=== PATIENT | male | born 1960 | race Two or more races ===

== ENCOUNTER → 2017-04-03 | Outpatient (CLI) | payer BC ==
--- NOTE | 2017-04-03 08:02 | MR ---
EXAMINATION TYPE: MR shoulder RT wo con DATE OF EXAM: 04/03/2017 7:47 AM COMPARISON: NONE HISTORY: Pain Right shoulder with limited ROM x2 years TECHNIQUE: Multiplanar, multisequence imaging of the right shoulder is performed without contrast. FINDINGS: There is no evidence of an os acromiale. There are minimal inflammatory changes and mild hy pertrophic changes in the right AC joint. There is mild tendinosis of the supraspinatus tendon. There is no evidence of rotator cuff tear. Cartilaginous glenoid labrum appears intact. The biceps tendon is normally situated within the biceps tendon groove and inserts normally upon the biceps anchor. There is a small amount of fluid in the rotator interval. IMPRESSION: MILD TENDINOSIS OF THE SPINOUS TENDON. 2. NO EVIDENCE OF A ROTATOR CUFF TEAR. 3. MINIMAL INFLAMMATORY CHANGE IN THE RIGHT AC JOINT.
== END | disposition home or self-care (01) ==
LOC: RADMRIMAIN 07:06
PROVIDERS: ATTEND Orthopaedic Surgery
DX: M19.011 Primary osteoarthritis, right shoulder (principal); M67.813 Other specified disorders of tendon, right shoulder

== ENCOUNTER 2017-07-13 13:29 | Emergency (ER) | payer BC ==
[2017-07-13 13:38] VITALS: RESP 18; TEMP 99.2
[2017-07-13] MEDS ORDERED: ONDANSETRON ODT 4 MG TAB PO STA (13:59)
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
--- NOTE | 2017-07-13 14:25 | CT ---
EXAMINATION TYPE: CT brain wo con DATE OF EXAM: 07/13/2017 HISTORY: Fell, hit head CT DLP: 1107.4 mGycm. Automated Exposure Control for Dose Reduction was Utilized. TECHNIQUE: CT scan of the head is performed without contrast. COMPARISON: None. FINDINGS: There is no acute intracranial hemorrhage or midline shift identified. There is diffuse v entricular and sulcal prominence consistent with diffuse age-related cerebral atrophy. There is low- attenuation in the periventricular white matter consistent with chronic small vessel ischemic change. The globes are intact and the visualized sinuses are clear. The calvarium is intact. IMPRESSION: No acute intracranial hemorrhage or midline shift. There is mild to minimal diffuse age -related cerebral atrophy and chronic small vessel ischemic change noted.
[2017-07-13 15:01] VITALS: PULSE 133
[2017-07-13 15:11] VITALS: BP 158/97
== END 2017-07-13 15:11 | disposition home or self-care (01) ==
LOC: EC 13:29
DX: S00.93XA Contusion of unspecified part of head, initial encounter (principal); M79.89 Other specified soft tissue disorders; I10 Essential (primary) hypertension; Z79.899 Other long term (current) drug therapy; W03.XXXA Other fall on same level due to collision with another person, initial encounter
CPT/HCPCS: 70450; 99283

== ENCOUNTER → 2017-10-15 | Day surgery (SDC) | payer BC ==
[2017-10-07 09:23] VITALS: BMI 35.2
[~2017-10-15] MED LIST: BUPIVACAINE-EPI 0.5%-1:200,000 10 ML VIAL SQ ONE; DEXAMETHASONE SOD PHOSPHATE 10 MG/ML 1 ML VIAL IV ONE; GLYCOPYRROLATE 0.2 MG/ML 2 ML VIAL ONE; HEPARIN SODIUM,PORCINE 5,000 UNIT/ML 1 ML VIAL SQ ONE; HYDROcodone/APAP 7.5-325MG 1 EACH TAB PO ONE; HYDROmorphone 0.5 MG/0.5 ML SYRINGE IVP PRN; KETAMINE 10 MG/ML 20 ML VIAL ONE; LACTATED RINGERS 1,000 ML IV SCH; LIDOCAINE 1% 20 ML VIAL (10MG/ML) FOR IV START INTRADERMA ONE; MIDAZOLAM 2 MG/2 ML VIAL ONE; NA PHOS,M-B/NA PHOS,DI-BA 133 ML ENEMA RECTAL ONE; ONDANSETRON 4 MG/2 ML VIAL IVP ONE; PROPOFOL 10 MG/ML 20 ML VIAL IV ONE; Pre Op ABX Message 1 EACH MISC MISCELLANE ONE; ceFAZolin 1,000 MG in DEXTROSE/WATER 1 50ML.BAG IVPB STA; fentaNYL (PF) 50 MCG/ML 2 ML AMP ONE
[2017-10-15 07:07] VITALS: TEMP 97.9
--- NOTE | 2017-10-15 08:00 | P.GSHP ---
History of Present Illness H&P Date: 10/15/17 Chief Complaint: Hemorrhoids This a 57-year-old male referred from Dr. Isiah Kumar. Patient rents today for hemorrhoidectomy. He's had issues with rectal bleeding, burning and itching. He underwent recent colonoscopy is found have evidence of internal and external hemorrhoids. Past Medical History Past Medical History: Asthma, GERD/Reflux, Hypertension Additional Past Medical History / Comment(s): STATES LOW HGB. History of Any Multi-Drug Resistant Organisms: None Reported Past Surgical History: Orthopedic Surgery Additional Past Surgical History / Comment(s): right wrist surgery-with hardware., COLONOSCOPY, EGD Past Anesthesia/Blood Transfusion Reactions: No Reported Reaction Past Psychological History: No Psychological Hx Reported Smoking Status: Never smoker Past Alcohol Use History: Rare Past Drug Use History: None Reported - Past Family History Mother Family Medical History: Cancer Additional Family Medical History / Comment(s): lung cancer Father Family Medical History: Cancer Additional Family Medical History / Comment(s): lung cancer Medications and Allergies Home Medications Medication Instructions Recorded Confirmed Type Albuterol Sulfate [Proventil Hfa] 1 - 2 puff INHALATION Q6HR PRN 09/20/17 History Ibuprofen 800 mg PO HS PRN 09/20/17 10/07/17 History Losartan/Hydrochlorothiazide 1 each PO DAILY 09/20/17 10/07/17 History [Hyzaar 50-12.5 Tablet] Multivit-Min/FA/Lycopen/Lutein 1 each PO DAILY 09/20/17 10/07/17 History [Centrum Silver Men Tablet] Omeprazole [PriLOSEC] 40 mg PO DAILY 09/20/17 10/07/17 History Allergies Allergy/AdvReac Type Severity Reaction Status Date / Time No Known Allergies Allergy Verified 09/20/17 11:17 Surgical - Exam Vital Signs Temp Pulse Resp BP Pulse Ox 97.9 F 84 18 125/73 97 10/15/17 07:05 10/15/17 07:05 10/15/17 07:05 10/15/17 07:05 10/15/17 07:05 - General well developed, no distress - Eyes PERRL - ENT normal pinna - Neck no masses - Respiratory normal expansion - Cardiovascular Rhythm: regular - Abdomen Abdomen: soft, non tender Assessment and Plan Assessment: Hemorrhoids. We'll perform internal and external hemorrhoidectomy.
--- NOTE | 2017-10-15 08:59 | P.OP ---
Date of Procedure: 10/15/17 Preoperative Diagnosis: Internal and external hemorrhoids Postoperative Diagnosis: Internal and external hemorrhoids Procedure(s) Performed: Normal and external hemorrhoidectomy Anesthesia: MAC Surgeon: Lonnie Franklin Estimated Blood Loss (ml): 5 Pathology: other (External hemorrhoids) Condition: stable Disposition: PACU Description of Procedure: She was placed on the endoscopy table in the on jackknife position. Patient received IV sedation and local anesthetic. Digital rectal exam was performed which revealed internal and external hemorrhoids. the bivalve anal retractors placed in the anus in the internal and external hemorrhoids were visualized. The left lateral hemorrhoid column was grasped with a pair of Allis clamps and then the hemorrhoidectomy was performed using the Harmonic scissors. Next the right anterior and the right posterior hemorrhoid column were excised in identical fashion. Using a 3-0 Vicryl suture the mucosal edges were approximated and closed. There was no bleeding seen. He said Gelfoam was placed patient anus. Patient was then sent to recovery room in stable condition.
[2017-10-15 09:32] VITALS: BP 134/69; PULSE 94; RESP 17
== END | disposition home or self-care (01) ==
LOC: OR 06:30
PROVIDERS: ATTEND Surgery
DX: K64.4 Residual hemorrhoidal skin tags (principal); K64.8 Other hemorrhoids; I10 Essential (primary) hypertension; J45.909 Unspecified asthma, uncomplicated; K21.9 Gastro-esophageal reflux disease without esophagitis; Z79.899 Other long term (current) drug therapy; Z80.1 Family history of malignant neoplasm of trachea, bronchus and lung
CPT/HCPCS: 46260; J2250; J1644; J1100; J2405; J3010; J0690; J2704; 88304

== ENCOUNTER 2019-06-08 11:10 | Emergency (ER) | payer BC, MEDICARE ==
[2019-06-08 11:32] VITALS: RESP 18; TEMP 98.4
[2019-06-08] MEDS ORDERED: ONDANSETRON 4 MG/2 ML VIAL IVP STA (11:54)
[2019-06-08] MEDS ORDERED: SODIUM CHLORIDE 0.9% 1,000 ML IV STA (11:54)
[2019-06-08] MEDS ORDERED: KETOROLAC 30 MG/ML 1 ML VIAL IVP STA (11:54)
[2019-06-08 12:15] LABS: Anisocytosis Slight; Basophils # (A) 0.1 k/uL (0-0.2); Basophils % (A) 1 %; Eosinophils # (A) 0.1 k/uL (0-0.7); Eosinophils % (A) 2 %; HCT 42.7 % (39.0-53.0); HGB 13.5 gm/dL (13.0-17.5); Lymphocytes # (A) 1.8 k/uL (1.0-4.8); Lymphocytes % (A) 25 %; MCH 24.9 pg (25.0-35.0); MCHC 31.7 g/dL (31.0-37.0); MCV 78.6 fL (80.0-100.0); Mean Platelet Volume 7.6; Microcytosis Slight; Monocytes # (A) 0.5 k/uL (0-1.0); Monocytes % (A) 6 %; Neutrophils # (A) 4.5 k/uL (1.3-7.7); Neutrophils % (A) 64 %; Platelet Count 223 k/uL (150-450); RBC 5.44 m/uL (4.30-5.90); RDW 16.8 % (11.5-15.5); WBC 7.1 k/uL (3.8-10.6)
--- NOTE | 2019-06-08 12:21 | CT ---
EXAMINATION TYPE: CT abdomen pelvis w con DATE OF EXAM: 06/08/2019 COMPARISON: None. HISTORY: Generalized abdominal pain x [address] DLP: 1893.8 mGycm, Automated Exposure Control for Dose Reduction was Utilized. CONTRAST: CT scan of the abdomen and pelvis is performed without oral but with IV Contrast, patient injected wi th 100 mL of Isovue 300. FINDINGS: LUNG BASES: No significant abnormality is appreciated. LIVER/GB: Liver is diffusely low dense consistent with marked fatty infiltration. PANCREAS: No significant abnormality is seen. SPLEEN: A splenule in the splenic hilum noted axial image 28. ADRENALS: No significant abnormality is seen. KIDNEYS: No significant abnormality is seen. BOWEL: Evaluation of all suboptimal secondary to lack of enteric contrast. No suspicious small or lar ge bowel dilatation is seen. There are few scattered colonic diverticula without CT evidence for acut e diverticulitis small bowel feces sign terminal ileum is consistent with delayed passage of ingested material to colonic level. Incidental normal-appearing appendix in the right pelvis. PROSTATE/SEMINAL VESICLES: Prostate gland upper limits of normal size bulging on bladder base. LYMPH NODES: No greater than 1cm abdominal or pelvic lymph nodes are appreciated. OSSEOUS STRUCTURES: Slight scoliotic curvature with mild to moderate multilevel spurring. OTHER: No significant additional abnormality is seen. IMPRESSION: No acute finding evident on this study.
[2019-06-08 12:29] LABS: ALT 48 U/L (21-72); AST 46 U/L (17-59); African American GFR (CKD) >90 (>60 ml/min/1.73 sqM); Albumin 4.3 g/dL (3.5-5.0); Alkaline Phosphatase 97 U/L (38-126); Amylase 40 U/L (30-110); Anion Gap 10 mmol/L; Blood Urea Nitrogen 20 mg/dL (9-20); Calcium 9.2 mg/dL (8.4-10.2); Carbon Dioxide 23 mmol/L (22-30); Chloride 107 mmol/L (98-107); Glucose 136 mg/dL (74-99); Sodium 140 mmol/L (137-145); Total Bilirubin 0.4 mg/dL (0.2-1.3)
[2019-06-08 13:18] LABS: Appearance,Urine Clear (Clear); Bilirubin,Urine Negative (Negative); Blood,Urine Negative (Negative); Color,Urine Light Yellow; Glucose,Urine (UA) Negative (Negative); Ketones,Urine Negative (Negative); Leukocyte Esterase,Urine Negative (Negative); Nitrite,Urine Negative (Negative); Protein,Urine Negative (Negative); Specific Gravity,Urine 1.043 (1.001-1.035); Urobilinogen,Urine <2.0 mg/dL (<2.0)
[2019-06-08 13:51] VITALS: BP 114/77; PULSE 69
--- NOTE | 2019-06-08 14:02 | ED ---
Abdominal Pain HPI - General Chief Complaint: Abdominal Pain Stated Complaint: abd pain Time Seen by Provider: 06/08/19 11:50 Source: patient, family, RN notes reviewed Mode of arrival: ambulatory Limitations: no limitations - History of Present Illness Initial Comments: 59-year-old male presents emergency Department chief complaint lower abdominal pain. Patient states started one states go. Patient states his only has lower abdominal low back. Patient denies diarrhea constipation, nausea vomiting dysuria hematuria patient states nothing really makes the pain feel better or is worse with certain movements. Patient denies fever, chills, chest pain or shortness breath. Patient has no history of diverticulitis no history of bowel infections. - Related Data Home Medications Medication Instructions Recorded Confirmed Albuterol Sulfate [Proventil Hfa] 1 - 2 puff INHALATION Q6HR PRN 09/20/17 10/07/17 Ibuprofen 800 mg PO HS PRN 09/20/17 10/07/17 Losartan/Hydrochlorothiazide 1 each PO DAILY 09/20/17 10/07/17 [Hyzaar 50-12.5 Tablet] Multivit-Min/FA/Lycopen/Lutein 1 each PO DAILY 09/20/17 10/07/17 [Centrum Silver Men Tablet] Omeprazole [PriLOSEC] 40 mg PO DAILY 09/20/17 10/07/17 Previous Rx's Medication Instructions Recorded Docusate [Colace] 100 mg PO BID #20 capsule 10/15/17 HYDROcodone/APAP 7.5-325MG [[place] 1 each PO Q4H PRN #30 tab 10/15/17 7.5] Allergies Allergy/AdvReac Type Severity Reaction Status Date / Time No Known Allergies Allergy Verified 06/08/19 11:32 Review of Systems ROS Statement: Those systems with pertinent positive or pertinent negative responses have been documented in the HPI. ROS Other: All systems not noted in ROS Statement are negative. Past Medical History Past Medical History: Asthma, GERD/Reflux, Hypertension Additional Past Medical History / Comment(s): STATES LOW HGB. History of Any Multi-Drug Resistant Organisms: None Reported Past Surgical History: Orthopedic Surgery Additional Past Surgical History / Comment(s): right wrist surgery-with hardware., COLONOSCOPY, EGD Past Anesthesia/Blood Transfusion Reactions: No Reported Reaction Past Psychological History: No Psychological Hx Reported Smoking Status: Never smoker Past Alcohol Use History: Rare Past Drug Use History: None Reported - Past Family History Mother Family Medical History: Cancer Additional Family Medical History / Comment(s): lung cancer Father Family Medical History: Cancer Additional Family Medical History / Comment(s): lung cancer General Exam Limitations: no limitations General appearance: alert, in no apparent distress Head exam: Present: atraumatic, normocephalic, normal inspection Eye exam: Present: normal appearance, PERRL, EOMI. Absent: scleral icterus, conjunctival injection, periorbital swelling ENT exam: Present: normal exam, normal oropharynx, mucous membranes moist, TM's normal bilaterally Neck exam: Present: normal inspection. Absent: tenderness, meningismus, lymphadenopathy Respiratory exam: Present: normal lung sounds bilaterally. Absent: respiratory distress, wheezes, rales, rhonchi, stridor Cardiovascular Exam: Present: regular rate, normal rhythm, normal heart sounds. Absent: systolic murmur, diastolic murmur, rubs, gallop, clicks GI/Abdominal exam: Present: soft, tenderness (Mild lower abdominal tenderness), normal bowel sounds. Absent: distended, guarding, rebound, rigid Back exam: Absent: CVA tenderness (R), CVA tenderness (L) Skin exam: Present: warm, dry, intact, normal color. Absent: rash Course Vital Signs 06/08/19 06/08/19 06/08/19 11:30 12:55 13:50 Temperature 98.4 F Pulse Rate 84 70 69 Respiratory 18 18 18 Rate Blood Pressure 138/86 127/87 114/77 O2 Sat by Pulse 96 93 L 96 Oximetry Medical Decision Making - Medical Decision Making 59-year-old male present emergency from for lower abdominal pain. Patient labs urinalysis and CT which is unremarkable. Patient CT only shows evidence of slight passage of stool in the colon. This may be causing patient's pain is far as chronic spasms or constipation issues. Patient advised take [id number] stool softeners stool laxative. Patient will follow-up with colonoscopy. - Lab Data Result diagrams: 06/08/19 11:55 06/08/19 11:55 Lab Results 06/08/19 06/08/19 06/08/19 Range/Units 11:55 11:55 11:55 WBC 7.1 (3.8-10.6) k/uL RBC 5.44 (4.30-5.90) m/uL Hgb 13.5 (13.0-17.5) gm/dL Hct 42.7 (39.0-53.0) % MCV 78.6 L (80.0-100.0) fL MCH 24.9 L (25.0-35.0) pg MCHC 31.7 (31.0-37.0) g/dL RDW 16.8 H (11.5-15.5) % Plt Count 223 (150-450) k/uL Neutrophils % 64 % Lymphocytes % 25 % Monocytes % 6 % Eosinophils % 2 % Basophils % 1 % Neutrophils # 4.5 (1.3-7.7) k/uL Lymphocytes # 1.8 (1.0-4.8) k/uL Monocytes # 0.5 (0-1.0) k/uL Eosinophils # 0.1 (0-0.7) k/uL Basophils # 0.1 (0-0.2) k/uL Anisocytosis Slight Microcytosis Slight Sodium 140 (137-145) mmol/L Potassium 4.0 (3.5-5.1) mmol/L Chloride 107 (98-107) mmol/L Carbon Dioxide 23 (22-30) mmol/L Anion Gap 10 mmol/L BUN 20 (9-20) mg/dL Creatinine 0.81 (0.66-1.25) mg/dL Est GFR (CKD-EPI)AfAm >90 (>60 ml/min/1.73 sqM) Est GFR (CKD-EPI)NonAf >90 (>60 ml/min/1.73 sqM) Glucose 136 H (74-99) mg/dL Plasma Lactic Acid Anegl 1.4 (0.7-2.0) mmol/L Calcium 9.2 (8.4-10.2) mg/dL Total Bilirubin 0.4 (0.2-1.3) mg/dL AST 46 (17-59) U/L ALT 48 (21-72) U/L Alkaline Phosphatase 97 (38-126) U/L Total Protein 8.0 (6.3-8.2) g/dL Albumin 4.3 (3.5-5.0) g/dL Amylase 40 (30-110) U/L Lipase 50 (23-300) U/L Urine Color Urine Appearance (Clear) Urine pH (5.0-8.0) Ur Specific [place] (1.001-1.035) Urine Protein (Negative) Urine Glucose (UA) (Negative) Urine Ketones (Negative) Urine Blood (Negative) Urine Nitrite (Negative) Urine Bilirubin (Negative) Urine Urobilinogen (<2.0) mg/dL Ur Leukocyte Esterase (Negative) 06/08/19 Range/Units 13:00 WBC (3.8-10.6) k/uL RBC (4.30-5.90) m/uL Hgb (13.0-17.5) gm/dL Hct (39.0-53.0) % MCV (80.0-100.0) fL MCH (25.0-35.0) pg MCHC (31.0-37.0) g/dL RDW (11.5-15.5) % Plt Count (150-450) k/uL Neutrophils % % Lymphocytes % % Monocytes % % Eosinophils % % Basophils % % Neutrophils # (1.3-7.7) k/uL Lymphocytes # (1.0-4.8) k/uL Monocytes # (0-1.0) k/uL Eosinophils # (0-0.7) k/uL Basophils # (0-0.2) k/uL Anisocytosis Microcytosis Sodium (137-145) mmol/L Potassium (3.5-5.1) mmol/L Chloride (98-107) mmol/L Carbon Dioxide (22-30) mmol/L Anion Gap mmol/L BUN (9-20) mg/dL Creatinine (0.66-1.25) mg/dL Est GFR (CKD-EPI)AfAm (>60 ml/min/1.73 sqM) Est GFR (CKD-EPI)NonAf (>60 ml/min/1.73 sqM) Glucose (74-99) mg/dL Plasma Lactic Acid [place] (0.7-2.0) mmol/L Calcium (8.4-10.2) mg/dL Total Bilirubin (0.2-1.3) mg/dL AST (17-59) U/L ALT (21-72) U/L Alkaline Phosphatase (38-126) U/L Total Protein (6.3-8.2) g/dL Albumin (3.5-5.0) g/dL Amylase (30-110) U/L Lipase (23-300) U/L Urine Color Light Yellow Urine Appearance Clear (Clear) Urine pH 7.0 (5.0-8.0) Ur Specific [place] 1.043 H (1.001-1.035) Urine Protein Negative (Negative) Urine Glucose (UA) Negative (Negative) Urine Ketones Negative (Negative) Urine Blood Negative (Negative) Urine Nitrite Negative (Negative) Urine Bilirubin Negative (Negative) Urine Urobilinogen <2.0 (<2.0) mg/dL Ur Leukocyte Esterase Negative (Negative) Disposition Clinical Impression: Abdominal pain Disposition: HOME SELF-CARE Condition: Stable Instructions (If sedation given, give patient instructions): Abdominal Pain (ED) Additional Instructions: Please return to the Emergency Department if symptoms worsen or any other concerns. Is patient prescribed a controlled substance at d/c from ED?: No Referrals: Isiah Vega DO [Primary Care Provider] - 1-2 days Lonnie Franklin MD [STAFF PHYSICIAN] - 1-2 days Time of Disposition: 14:01
== END 2019-06-08 14:23 | disposition home or self-care (01) ==
LOC: EC 11:10
DX: R10.30 Lower abdominal pain, unspecified (principal); J45.909 Unspecified asthma, uncomplicated; K21.9 Gastro-esophageal reflux disease without esophagitis; I10 Essential (primary) hypertension; Z79.51 Long term (current) use of inhaled steroids; Z79.899 Other long term (current) drug therapy
CPT/HCPCS: 36415; 80053; 82150; 83605; 83690; 85025; 81003; 74177; 96374; 96375; 96361; 99284; J2405; J1885; Q9967

== ENCOUNTER 2019-07-11 09:42 | Day surgery (SDC) | payer MEDICARE ==
[2019-07-10 08:41] VITALS: BMI 48.8
[~2019-07-11 09:42] MED LIST changes: -BUPIVACAINE-EPI 0.5%-1:200,000 10 ML VIAL SQ ONE; -DEXAMETHASONE SOD PHOSPHATE 10 MG/ML 1 ML VIAL IV ONE; -GLYCOPYRROLATE 0.2 MG/ML 2 ML VIAL ONE; -HEPARIN SODIUM,PORCINE 5,000 UNIT/ML 1 ML VIAL SQ ONE; -HYDROcodone/APAP 7.5-325MG 1 EACH TAB PO ONE; -HYDROmorphone 0.5 MG/0.5 ML SYRINGE IVP PRN; -KETAMINE 10 MG/ML 20 ML VIAL ONE; -LIDOCAINE 1% 20 ML VIAL (10MG/ML) FOR IV START INTRADERMA ONE; +LIDOCAINE 1% 20 ML VIAL (10MG/ML) FOR IV START INTRADERMA PRN; -MIDAZOLAM 2 MG/2 ML VIAL ONE; -NA PHOS,M-B/NA PHOS,DI-BA 133 ML ENEMA RECTAL ONE; -ONDANSETRON 4 MG/2 ML VIAL IVP ONE; -PROPOFOL 10 MG/ML 20 ML VIAL IV ONE; -Pre Op ABX Message 1 EACH MISC MISCELLANE ONE; -ceFAZolin 1,000 MG in DEXTROSE/WATER 1 50ML.BAG IVPB STA; -fentaNYL (PF) 50 MCG/ML 2 ML AMP ONE
[2019-07-11 10:14] VITALS: RESP 16; TEMP 97.9
[2019-07-11] MEDS ORDERED: PROPOFOL 10 MG/ML 20 ML VIAL IV ONE (10:28)
--- NOTE | 2019-07-11 10:36 | P.GSHP ---
History of Present Illness H&P Date: 07/11/19 Chief Complaint: Diverticulitis, constipation This a 5-year-old male who presents today for colonoscopy. Patient had complaints of diverticulitis and constipation. Past Medical History Past Medical History: Asthma, GERD/Reflux, Hypertension, Osteoarthritis (OA) Additional Past Medical History / Comment(s): Recent back and abd pain, ? diverticulitis. History of Any Multi-Drug Resistant Organisms: None Reported Past Surgical History: Orthopedic Surgery Additional Past Surgical History / Comment(s): Right wrist surgery with hardwar e, COLONOSCOPY, EGD. Past Anesthesia/Blood Transfusion Reactions: No Reported Reaction Past Psychological History: No Psychological Hx Reported Smoking Status: Never smoker Past Alcohol Use History: Rare Past Drug Use History: None Reported - Past Family History Mother Family Medical History: Cancer Additional Family Medical History / Comment(s): Lung cancer. Father Family Medical History: Cancer Additional Family Medical History / Comment(s): Lung cancer. Medications and Allergies Home Medications Medication Instructions Recorded Confirmed Type Albuterol Sulfate [Proventil Hfa] 1 - 2 puff INHALATION Q6HR PRN 09/20/17 07/11/19 History Losartan/Hydrochlorothiazide 1 each PO QAM 09/20/17 07/11/19 History [Hyzaar 50-12.5 Tablet] Omeprazole [PriLOSEC] 40 mg PO QAM 09/20/17 07/11/19 History L.acidoph,Paracasei, B.lactis 1 each PO DAILY 07/10/19 07/11/19 History [Probiotic] Loratadine [Claritin] 10 mg PO DAILY 07/10/19 07/11/19 History Allergies Allergy/AdvReac Type Severity Reaction Status Date / Time No Known Allergies Allergy Verified 07/11/19 09:57 Surgical - Exam Vital Signs Temp Pulse Resp BP Pulse Ox 97.9 F 78 16 131/74 95 07/11/19 10:10 07/11/19 10:10 07/11/19 10:10 07/11/19 10:10 07/11/19 10:10 - General well developed, well nourished, no distress - Eyes PERRL - ENT normal pinna - Neck no masses - Respiratory normal expansion - Cardiovascular Rhythm: regular - Abdomen Abdomen: soft, non tender Assessment and Plan Assessment: Diverticulitis Constipation We'll perform colonoscopy
[2019-07-11 11:03] VITALS: BP 115/71; PULSE 73
--- NOTE | 2019-07-11 11:04 | P.OP ---
Date of Procedure: 07/11/19 Preoperative Diagnosis: Diverticulitis Postoperative Diagnosis: Right colon polyp Mild diverticulosis Possible proctitis pathology pending Procedure(s) Performed: Colonoscopy Anesthesia: MAC Surgeon: Lonnie Franklin Pathology: other (Rectum, right colon polyp) Condition: stable Disposition: PACU Description of Procedure: The patient's placed on the endoscopy table in the lateral position. He received IV sedation. Digital rectal exam was performed which revealed no abnormalities. The prostate was symmetric without nodules. The flexible colonoscope was then placed patient anus and passed throughout the entire colon. The ileocecal valve was visually is. The cecum appeared normal. In the asce nding colon there is a small sessile polyp. This removed with the cold forcep. The remainder of the ascending colon and transverse colon appeared normal. In the descending colon and sigmoid colon was a few scattered diverticula. Scope was then brought back the rectum the mucosa appeared to be mildly erythematous and inflamed this was biopsied with cold forcep. Scope was withdrawn for patient.
== END 2019-07-11 11:58 | disposition home or self-care (01) ==
LOC: ORWHC2ENDO 09:42
PROVIDERS: ATTEND Surgery
DX: D12.2 Benign neoplasm of ascending colon (principal); K57.30 Diverticulosis of large intestine without perforation or abscess without bleeding; J45.909 Unspecified asthma, uncomplicated; K21.9 Gastro-esophageal reflux disease without esophagitis; I10 Essential (primary) hypertension; M19.90 Unspecified osteoarthritis, unspecified site; Z85.118 Personal history of other malignant neoplasm of bronchus and lung; Z79.899 Other long term (current) drug therapy; Z97.2 Presence of dental prosthetic device (complete) (partial)
CPT/HCPCS: 88305; 45380; J2704

== ENCOUNTER 2023-01-18 11:34 | Emergency (ER) | payer MEDICARE ==
[2023-01-18 12:20] VITALS: RESP 18; TEMP 99.1
--- NOTE | 2023-01-18 12:59 | XR ---
EXAMINATION TYPE: XR chest 2V DATE OF EXAM: 01/18/2023 COMPARISON: None INDICATION: Cough fever chest pain TECHNIQUE: Frontal and lateral views of the chest are obtained. FINDINGS: The heart size is normal. The pulmonary vasculature is normal. The lungs are clear. IMPRESSION: 1. No acute pulmonary process.
[2023-01-18 13:24] LABS: African American GFR (CKD) >90 (>60 ml/min/1.73 sqM); Anion Gap 10 mmol/L; Blood Urea Nitrogen 22 mg/dL (9-20); Calcium 8.9 mg/dL (8.4-10.2); Carbon Dioxide 24 mmol/L (22-30); Chloride 102 mmol/L (98-107); Glucose 147 mg/dL (74-99); Non-African American GFR(CKD) >90 (>60 ml/min/1.73 sqM); Potassium 4.1 mmol/L (3.5-5.1); Sodium 136 mmol/L (137-145)
[2023-01-18 14:04] LABS: Basophils % (A) 0 %; Eosinophils # (A) 0.1 k/uL (0-0.7); Eosinophils % (A) 1 %; HCT 44.1 % (39.0-53.0); HGB 15.3 gm/dL (13.0-17.5); Lymphocytes # (A) 1.4 k/uL (1.0-4.8); Lymphocytes % (A) 14 %; MCH 28.3 pg (25.0-35.0); MCHC 34.5 g/dL (31.0-37.0); MCV 81.8 fL (80.0-100.0); Mean Platelet Volume 8.6; Monocytes # (A) 0.9 k/uL (0-1.0); Monocytes % (A) 9 %; Neutrophils # (A) 7.6 k/uL (1.3-7.7); Neutrophils % (A) 74 %; Platelet Count 165 k/uL (150-450); RDW 14.9 % (11.5-15.5); WBC 10.2 k/uL (3.8-10.6)
[2023-01-18] MEDS ORDERED: DEXAMETHASONE SOD PHOSPHATE 4 MG/ML 1 ML VIAL IVP STA (14:31)
--- NOTE | 2023-01-18 14:32 | ED ---
General Adult HPI - General Chief complaint: Chest Pain Stated complaint: fever cough Time Seen by Provider: 01/18/23 12:26 Source: patient, RN notes reviewed, old records reviewed Mode of arrival: ambulatory Limitations: no limitations - History of Present Illness Initial comments: Patient is a 62-year-old male who presents emergency Department complaining of a nonproductive cough and fever. Patient has some chest tightness with coughing only. Is not present at rest and is not persistent. States it is generalized chest tightness. Believes it is recommended related to his significant amount of coughing. Denies diarrhea, nausea, vomiting, diaphoresis. Does endorse some shortness of breath that is worse when he is coughing. Denies any known sick contacts. Is up-to-date on vaccines. His no other acute complaints at this time. His concern for possible infectious etiology for symptoms. Patient does have a history of mild asthma has never been admitted for it. Also history of hypertension and GERD. No known sick contacts. - Related Data Home Medications Medication Instructions Recorded Confirmed Albuterol Sulfate [Proventil Hfa] 1 - 2 puff INHALATION Q6HR PRN 09/20/17 07/11/19 Losartan/Hydrochlorothiazide 1 each PO QAM 09/20/17 07/11/19 [Hyzaar 50-12.5 Tablet] Omeprazole [PriLOSEC] 40 mg PO QAM 09/20/17 07/11/19 L.acidoph,Paracasei, B.lactis 1 each PO DAILY 07/10/19 07/11/19 [Probiotic] Loratadine [Claritin] 10 mg PO DAILY 07/10/19 07/11/19 Allergies Allergy/AdvReac Type Severity Reaction Status Date / Time No Known Allergies Allergy Verified 01/18/23 12:20 Review of Systems ROS Statement: Those systems with pertinent positive or pertinent negative responses have been documented in the HPI. Review of Systems: CONST: Endorses fever EYES: Denies blurry vision ENT: Endorses nasal congestion C/V: Denies Chest pain RESP: Endorses cough GI: Denies abdominal pain : Denies dysuria SKIN: Denies rash. MSK: Denies joint pain. NEURO: Denies headache ROS Other: All systems not noted in ROS Statement are negative. Past Medical History Past Medical History: Asthma, GERD/Reflux, Hypertension, Osteoarthritis (OA) Additional Past Medical History / Comment(s): Recent back and abd pain, ? diverticulitis. History of Any Multi-Drug Resistant Organisms: None Reported Past Surgical History: Orthopedic Surgery Additional Past Surgical History / Comment(s): Right wrist surgery with hardware, COLONOSCOPY, EGD. Past Anesthesia/Blood Transfusion Reactions: No Reported Reaction Past Psychological History: No Psychological Hx Reported Smoking Status: Former smoker Past Alcohol Use History: Rare Past Drug Use History: None Reported - Past Family History Mother Family Medical History: Cancer Additional Family Medical History / Comment(s): Lung cancer. Father Family Medical History: Cancer Additional Family Medical History / Comment(s): Lung cancer. General Exam - General Exam Comments Initial Comments: General: Appears in no acute distress. HEAD: Normal with no signs of head trauma. EYES: EOMI ENT: Hearing grossly intact, normal oropharynx. RESPIRATORY: Clear breath sounds bilaterally. No wheezes, rales, or rhonchi. No hypoxia. No increased work of breathing. C/V: Regular rate and rhythm. S1 and S2 auscultated, no edema, peripheral pulses 2+ and intact throughout ABD: Abd is soft, nontender, nondistended EXT: Normal range of motion, no obvious deformity SKIN: No rashes or lesions observed on exposed skin. NEURO: Alert and oriented 4. Limitations: no limitations Course Vital Signs 01/18/23 12:18 Temperature 99.1 F Pulse Rate 103 H Respiratory 18 Rate O2 Sat by Pulse 94 L Oximetry Medical Decision Making - Medical Decision Making Was pt. sent in by a medical professional or institution (, PA, SHEET METAL WELDER, urgent care, hospital, or senior living...) When possible be specific @ -No Did you speak to anyone other than the patient for history (EMS, parent, family, police, friend...)? What history was obtained from this source @ -No Did you review nursing and triage notes (agree or disagree)? Why? @ -I reviewed and agree with nursing and triage notes Were old charts reviewed (outside hosp., previous admission, EMS record, old EKG, old radiological studies, urgent care reports/EKG's, senior living records)? Report findings @ -No old charts were reviewed Differential Diagnosis (chest pain, altered mental status, abdominal pain women, abdominal pain men, vaginal bleeding, weakness, fever, dyspnea, syncope, headache, dizziness, GI bleed, back pain, seizure, CVA, palpatations, mental health, musculoskeletal)? @ -Covid infection, pneumonia, influenza, viral syndrome. This list is not all-inclusive. EKG interpreted by me (3pts min.). @ -As above X-rays interpreted by me (1pt min.). @ -Chest x-ray showed no obvious acute cardiopulmonary process. CT interpreted by me (1pt min.). @ -None done U/S interpreted by me (1pt. min.). @ -None done What testing was considered but not performed or refused? (CT, X-rays, U/S, labs)? Why? @ -None What meds were considered but not given or refused? Why? @ -None Did you discuss the management of the patient with other professionals (professionals i.e. , PA, SHEET METAL WELDER, lab, RT, psych nurse, healthcare social worker, coding assistant, teacher, security flex utility officer, hospice case manager)? Give summary @ -No Was smoking cessation discussed for >3mins.? @ -No Was critical care preformed (if so, how long)? @ -No Were there social determinants of health that impacted care today? How? (Homelessness, low income, unemployed, alcoholism, drug addiction, transportation, low edu. Level, literacy, decrease access to med. care, fdc, rehab)? @ -No Was there de-escalation of care discussed even if they declined (Discuss DNR or withdrawal of care, Hospice)? DNR status @ -No What co-morbidities impacted this encounter? (DM, HTN, Smoking, COPD, CAD, Cancer, CVA, ARF, Chemo, Hep., AIDS, mental health diagnosis, sleep apnea, morbid obesity)? @ -None Was patient admitted / discharged? Hospital course, mention meds given and route, prescriptions, significant lab abnormalities, going to OR and other pertinent info. @ -Based on the patient's presentation and physical exam, there is concern for infectious etiology for his current symptoms. EKG was obtained in triage and was unremarkable. I recommended we obtain basic labs, vital signs, chest x-ray. He is currently afebrile and will be given antipyretics. He was in agreement with this plan. Patient is Covid positive. Influenza negative. Chest x-ray is unremarkable. Labs are otherwise within acceptable limits. I updated the patient. Fevers improving. Vital signs remained within except for limits. I believe it is safe for him to be discharged home. We did discuss strict return precautions. Discussed obtaining a pulse ox which she already has at home and monitoring for approximation less than 92%. Discuss treating his fevers with Tylenol and M otrin. He was in agreement this plan. Recommended he follow up with his PCP in the next 48 hours. Recommended that he remain isolated for 5 days after symptom onset, which will be this upcoming wednesday. He was in agreement this plan. Recommended remaining isolated until 24 hours fever free. I instructed the patient to follow up with their PCP in the next 1-3 days . I explained that the patient should return to the emergency department if they experience any worsening symptoms. Strict return precautions were discussed with the patient. The patient expressed understanding of these instructions. I answered all questions that the patient had. The patient was discharged home in good condition with their prescriptions and follow up information. Undiagnosed new problem with uncertain prognosis? @ -No Drug Therapy requiring intensive monitoring for toxicity (Heparin, Nitro, Insulin, Cardizem)? @ -No Were any procedures done? @ -No Diagnosis/symptom? @ -Covid 19 infection Acute, or Chronic, or Acute on Chronic? @ -Acute Uncomplicated (without systemic symptoms) or Complicated (systemic symptoms)? @ -Uncomplicated Side effects of treatment? @ -No Exacerbation, Progression, or Severe Exacerbation? @ -No Poses a threat to life or bodily function? How? (Chest pain, [place], [place], pneumonia, PE, COPD, DKA, ARF, appy, cholecystitis, CVA, Diverticulitis, Homicidal, Suicidal, threat to staff... and all critical care pts) @ -No - Lab Data Result diagrams: 01/18/23 12:51 01/18/23 12:51 Lab Results 01/18/23 01/18/23 01/18/23 Range/Units 12:51 12:51 12:51 WBC 10.2 (3.8-10.6) k/uL RBC 5.40 (4.30-5.90) m/uL Hgb 15.3 (13.0-17.5) gm/dL Hct 44.1 (39.0-53.0) % MCV 81.8 (80.0-100.0) fL MCH 28.3 (25.0-35.0) pg MCHC 34.5 (31.0-37.0) g/dL RDW 14.9 (11.5-15.5) % Plt Count 165 (150-450) k/uL MPV 8.6 Neutrophils % 74 % Lymphocytes % 14 % Monocytes % 9 % Eosinophils % 1 % Basophils % 0 % Neutrophils # 7.6 (1.3-7.7) k/uL Lymphocytes # 1.4 (1.0-4.8) k/uL Monocytes # 0.9 (0-1.0) k/uL Eosinophils # 0.1 (0-0.7) k/uL Basophils # 0.0 (0-0.2) k/uL Sodium 136 L (137-145) mmol/L Potassium 4.1 (3.5-5.1) mmol/L Chloride 102 (98-107) mmol/L Carbon Dioxide 24 (22-30) mmol/L Anion Gap 10 mmol/L BUN 22 H (9-20) mg/dL Creatinine 0.75 (0.66-1.25) mg/dL Est GFR (CKD-EPI)AfAm >90 (>60 ml/min/1.73 sqM) Est GFR (CKD-EPI)NonAf >90 (>60 ml/min/1.73 sqM) Glucose 147 H (74-99) mg/dL Calcium 8.9 (8.4-10.2) mg/dL Influenza Type A (PCR) Not Detected (Not Detectd) Influenza Type B (PCR) Not Detected (Not Detectd) RSV (PCR) Not Detected (Not Detectd) SARS-CoV-2 (PCR) Detected A (Not Detectd) - EKG Data -: EKG Interpreted by Me EKG Comments: 12-lead Electrocardiogram Interpretation Note EKG was reviewed and interpreted by myself. 12-lead ECG performed at 1226 is interpreted by me as revealing normal sinus rhythm at a rate of 90 beats per minute. [place] is normal. VT interval is 167 ms, QRS duration is 90 ms, QTc is 385 ms.. There were no ST or T wave abnormalities to suggest myocardial ischemia or injury. R wave progression across the precordium was satisfactory. By my interpretation this EKG is non-diagnostic for acute ischemia. No prior EKG for comparison. Disposition Clinical Impression: Fever, COVID-19 virus infection Disposition: HOME SELF-CARE Condition: Good Instructions (If sedation given, give patient instructions): COVID-19 (Coronavirus Disease 2019) (ED) Is patient prescribed a controlled substance at d/c from ED?: No Referrals: Jeff Veras MD [Primary Care Provider] - 1-2 days Time of Disposition: 14:20
[2023-01-18 15:20] VITALS: BP 111/66; PULSE 83
== END 2023-01-18 15:20 | disposition home or self-care (01) ==
LOC: EC 11:34
DX: U07.1 COVID-19 (principal); J45.909 Unspecified asthma, uncomplicated; K21.9 Gastro-esophageal reflux disease without esophagitis; I10 Essential (primary) hypertension; M19.90 Unspecified osteoarthritis, unspecified site; Z87.891 Personal history of nicotine dependence; Z79.899 Other long term (current) drug therapy
CPT/HCPCS: 36415; 93005; 80048; 85025; 87636; 71046; 99285; 96374; J1100

== ENCOUNTER 2024-06-17 18:21 | Emergency (ER) | payer MEDICARE ==
[2024-06-17 18:59] VITALS: BP 121/71; PULSE 57; RESP 20; TEMP 98.1
[2024-06-17 19:28] LABS: Basophils # (A) 0.1 k/uL (0-0.2); Basophils % (A) 1 %; Eosinophils % (A) 0 %; HCT 44.3 % (39.0-53.0); HGB 15.1 gm/dL (13.0-17.5); Lymphocytes # (A) 2.3 k/uL (1.0-4.8); Lymphocytes % (A) 22 %; MCH 30.4 pg (25.0-35.0); MCV 89.4 fL (80.0-100.0); Monocytes # (A) 0.6 k/uL (0-1.0); Monocytes % (A) 6 %; Neutrophils # (A) 7.4 k/uL (1.3-7.7); Neutrophils % (A) 71 %; Platelet Count 238 k/uL (150-450); RBC 4.95 m/uL (4.30-5.90); RDW 12.8 % (11.5-15.5); WBC 10.5 k/uL (3.8-10.6)
--- NOTE | 2024-06-17 19:29 | ED ---
Neuro HPI - General Source: patient, RN notes reviewed Mode of arrival: ambulatory Limitations: no limitations - History of Present Illness Is the patient presenting with stroke symptoms?: Yes Last Known Well Date: 06/16/24 <Stephanie Gupta - Last Filed: 06/17/24 19:26> <Tye Calero - Last Filed: 06/18/24 03:53> - General Chief Complaint: Neuro Symptoms/Deficit Stated Complaint: Facial Droop Time Seen by Provider: 06/17/24 19:26 - History of Present Illness Initial Comments: Quick [id number] male presenting with facial droop x 1 day. reports patient woke up yesterday morning with right-sided facial paralysis. reports patient's right eye is not blinking and he is speaking differently than usual. Patient denies any symptoms such as weakness, numbness, tingling. Patient is not on blood thinners. He has never had this before. (Stephanie Gupta) 64-year-old male presenting with chief complaint of facial droop. Right-sided facial droop has been ongoing since yesterday morning. He is unable to close his right eye. He is also unable to raise his right eyebrow. He states that he did have a recent illness. No headache, injury, neck pain, vision or hearing changes, numbness, tingling, weakness. No fevers or chills. No chest pain or difficulty breathing. (Tye Calero) - Related Data Home Medications: Home Medications Medication Instructions Recorded Confirmed Albuterol Sulfate [Proventil Hfa] 1 - 2 puff INHALATION Q6HR PRN 09/20/17 07/11/19 Losartan/Hydrochlorothiazide 1 each PO QAM 09/20/17 07/11/19 [Hyzaar 50-12.5 Tablet] Omeprazole [PriLOSEC] 40 mg PO QAM 09/20/17 07/11/19 L.acidoph,Paracasei, B.lactis 1 each PO DAILY 07/10/19 07/11/19 [Probiotic] Loratadine [Claritin] 10 mg PO DAILY 07/10/19 07/11/19 Previous Rx's Medication Instructions Recorded Artificial Tears-Hypromellose 1 drops RIGHT EYE TID #1 dropper 06/17/24 [Artificial Tear Drops] Erythromycin Ophth Oint [Romycin 1 applic RIGHT EYE HS #3.5 gm 06/17/24 Ophth Oint] predniSONE [Deltasone] 60 mg PO DAILY 6 Days #18 tab 06/17/24 Allergies/Adverse Reactions: Allergies Allergy/AdvReac Type Severity Reaction Status Date / Time No Known Allergies Allergy Verified 06/17/24 18:58 Review of Systems ROS Other: All systems not noted in ROS Statement are negative. <Stephanie Gupta - Last Filed: 06/17/24 19:26> ROS Other: All systems not noted in ROS Statement are negative. <Tye Calero - Last Filed: 06/18/24 03:53> ROS Statement: Those systems with pertinent positive or pertinent negative responses have been documented in the HPI. General Exam Limitations: no limitations <Stephanie Gupta - Last Filed: 06/17/24 19:26> General appearance: alert, in no apparent distress Head exam: Present: atraumatic, normocephalic Eye exam: Present: other (Unable to fully close right eye) ENT exam: Present: TM's normal bilaterally Neck exam: Present: normal inspection. Absent: meningismus Respiratory exam: Absent: respiratory distress Cardiovascular Exam: Present: regular rate Neurological exam: Present: alert, oriented X3, normal gait Expanded Cranial nerves: Facial Palsy without Forehead Movement: Abnormal Right Motor strength exam: RUE: 5, LUE: 5, RLE: 5, LLE: 5 Eye Response: (4) open spontaneously Motor Response: (6) obeys commands Verbal Response: (5) oriented [place] Total: 15 Psychiatric exam: Present: normal affect, normal mood Skin exam: Present: warm, dry, intact, normal color. Absent: rash <Tye Calero - Last Filed: 06/18/24 03:53> - General Exam Comments Initial Comments: Visual Physical Exam Vital signs reviewed General: Well-appearing, nontoxic, no acute distress. Head: Normocephalic, atraumatic Eyes: PERRLA, EOMI ENT: Airway patent Chest: Nonlabored breathing Skin: No visual rash, normal skin tone Neuro: Alert and oriented 3, visible right-sided facial paralysis Musculoskeletal: No gross abnormalities (Stephanie Gupta) Stroke MDM <Stephanie Gupta - Last Filed: 06/17/24 19:26> - Lab Data Result diagrams: 06/17/24 19:17 06/17/24 19:17 <Tye Calero - Last Filed: 06/18/24 03:53> - Lab Data Lab Results 06/17/24 06/17/24 06/17/24 Range/Units 19:17 19:17 19:17 WBC 10.5 (3.8-10.6) k/uL RBC 4.95 (4.30-5.90) m/uL Hgb 15.1 (13.0-17.5) gm/dL Hct 44.3 (39.0-53.0) % MCV 89.4 (80.0-100.0) fL MCH 30.4 (25.0-35.0) pg MCHC 34.0 (31.0-37.0) g/dL RDW 12.8 (11.5-15.5) % Plt Count 238 (150-450) k/uL MPV 8.0 Neutrophils % 71 % Lymphocytes % 22 % Monocytes % 6 % Eosinophils % 0 % Basophils % 1 % Neutrophils # 7.4 (1.3-7.7) k/uL Lymphocytes # 2.3 (1.0-4.8) k/uL Monocytes # 0.6 (0-1.0) k/uL Eosinophils # 0.0 (0-0.7) k/uL Basophils # 0.1 (0-0.2) k/uL PT 11.8 (10.0-12.5) sec INR 1.1 (<1.2) APTT 27.6 (22.0-30.0) sec Sodium 133 L (137-145) mmol/L Potassium 4.2 (3.5-5.1) mmol/L Chloride 101 (98-107) mmol/L Carbon Dioxide 23 (22-30) mmol/L Anion Gap 9 mmol/L BUN 26 H (9-20) mg/dL Creatinine 0.61 L (0.66-1.25) mg/dL Est GFR (CKD-EPI)AfAm >90 (>60 ml/min/1.73 sqM) Est GFR (CKD-EPI)NonAf >90 (>60 ml/min/1.73 sqM) Glucose 121 H (74-99) mg/dL Calcium 9.8 (8.4-10.2) mg/dL Magnesium 1.9 (1.6-2.3) mg/dL Total Bilirubin 0.9 (0.2-1.3) mg/dL AST 39 (17-59) U/L ALT 30 (4-49) U/L Alkaline Phosphatase 77 (38-126) U/L Troponin I (0.000-0.034) ng/mL Total Protein 8.0 (6.3-8.2) g/dL Albumin 4.7 (3.5-5.0) g/dL 06/17/24 Range/Units 19:17 WBC (3.8-10.6) k/uL RBC (4.30-5.90) m/uL Hgb (13.0-17.5) gm/dL Hct (39.0-53.0) % MCV (80.0-100.0) fL MCH (25.0-35.0) pg MCHC (31.0-37.0) g/dL RDW (11.5-15.5) % Plt Count (150-450) k/uL MPV Neutrophils % % Lymphocytes % % Monocytes % % Eosinophils % % Basophils % % Neutrophils # (1.3-7.7) k/uL Lymphocytes # (1.0-4.8) k/uL Monocytes # (0-1.0) k/uL Eosinophils # (0-0.7) k/uL Basophils # (0-0.2) k/uL PT (10.0-12.5) sec INR (<1.2) APTT (22.0-30.0) sec Sodium (137-145) mmol/L Potassium (3.5-5.1) mmol/L Chloride (98-107) mmol/L Carbon Dioxide (22-30) mmol/L Anion Gap mmol/L BUN (9-20) mg/dL Creatinine (0.66-1.25) mg/dL Est GFR (CKD-EPI)AfAm (>60 ml/min/1.73 sqM) Est GFR (CKD-EPI)NonAf (>60 ml/min/1.73 sqM) Glucose (74-99) mg/dL Calcium (8.4-10.2) mg/dL Magnesium (1.6-2.3) mg/dL Total Bilirubin (0.2-1.3) mg/dL AST (17-59) U/L ALT (4-49) U/L Alkaline Phosphatase (38-126) U/L Troponin I <0.012 (0.000-0.034) ng/mL Total Protein (6.3-8.2) g/dL Albumin (3.5-5.0) g/dL - Medical Decision Making I completed the quick note portion of this chart signed Stephanie Gupta PA-C (Stephanie Gupta) Was pt. sent in by a medical professional or institution (, PA, MACHINE SIZER, urgent care, hospital, or penitentiary...) When possible be specific @ -No Did you speak to anyone other than the patient for history (EMS, parent, family, police, friend...)? What history was obtained from this source @ -No Did you review nursing and triage notes (agree or disagree)? Why? @ -I reviewed and agree with nursing and triage notes Were old charts reviewed (outside hosp., previous admission, EMS record, old EKG, old radiological studies, urgent care reports/EKG's, penitentiary records)? Report findings @ -No old charts were reviewed Differential Diagnosis (chest pain, altered mental status, abdominal pain women, abdominal pain men, vaginal bleeding, weakness, fever, dyspnea, syncope, headache, dizziness, GI bleed, back pain, seizure, CVA, palpatations, mental health, musculoskeletal)? @ -Differential CVA Ischemic stroke, hemorrhagic stroke, brain tumor, atypical migraine, Wernicke's encephalopathy, seizure, multiple sclerosis, meningitis, encephalitis, hypoglycemia, Guillain-Rai, electrolytes disturbance, myasthenia gravis.... This is not meant to be an all-inclusive list EKG interpreted by me (3pts min.). @ -As above X-rays interpreted by me (1pt min.). @ -None done CT interpreted by me (1pt min.). @ -CT shows no evidence of an acute intracranial abnormality. Atrophy and chronic microvascular ischemic white matter changes. CT angio shows patent CTA neck no evidence of dissection or significant stenosi s. Patent CTA head. No intracranial large vessel occlusion, significant stenosis, or sizable aneurysm detected in the limits of CTA U/S interpreted by me (1pt. min.). @ -None done What testing was considered but not performed or refused? (CT, X-rays, U/S, labs)? Why? @ -None What meds were considered but not given or refused? Why? @ -None Did you discuss the management of the patient with other professionals (professionals i.e. , PA, MACHINE SIZER, lab, RT, psych nurse, psychiatric social worker, steel die engraver, teacher, chief communications officer, casework supervisor)? Give summary @ -No Was smoking cessation discussed for >3mins.? @ -No Was critical care preformed (if so, how long)? @ -No Were there social determinants of health that impacted care today? How? (Homelessness, low income, unemployed, alcoholism, drug addiction, transportation, low edu. Level, literacy, decrease access to med. care, [facility], rehab)? @ -No Was there de-escalation of care discussed even if they declined (Discuss DNR or withdrawal of care, Hospice)? DNR status @ -No What co-morbidities impacted this encounter? (DM, HTN, Smoking, COPD, CAD, [place], CVA, ARF, Chemo, Hep., AIDS, mental health diagnosis, sleep apnea, morbid obesity)? @ -None Was patient admitted / discharged? Hospital course, mention meds given and route, prescriptions, significant lab abnormalities, going to OR and other pertinent info. @ -64-year-old male presenting with chief complaint of right-sided facial droop ongoing since yesterday morning. Workup was initiated by triage. Negative CT of the brain without contrast and CTA of the head and neck. I later evaluated the patient in the waiting room, he has a right-sided facial palsy that involves the eyebrow. He is able to raise the left eyebrow but not the right. No rash or lesions inside the ear. Presentation seems consistent with Ricardo's palsy. Patient is educated on today's findings. He will be treated with prednisone. Provided with artificial tears and ophthalmic ointment for evening. Instructed to tape his eye shut at night. Provided with ophthalmology follow-up. Discharged. Follow-up with PCP. Report back to ER with any new or worsening symptoms. Discussed return parameters and answered all questions. Patient conveyed verbal understanding and agreed to the plan. I discussed this case in detail with my attending Dr. Alba Undiagnosed new problem with uncertain prognosis? @ -No Drug Therapy requiring intensive monitoring for toxicity (Heparin, Nitro, Insulin, Cardizem)? @ -No Were any procedures done? @ -No Diagnosis/symptom? @ -Ricardo's palsy Acute, or Chronic, or Acute on Chronic? @ -Acute Uncomplicated (without systemic symptoms) or Complicated (systemic symptoms)? @ -Uncomplicated Side effects of treatment? @ -No Exacerbation, Progression, or Severe Exacerbation? @ -No Poses a threat to life or bodily function? How? (Chest pain, [place], [place], pneumonia, PE, COPD, DKA, ARF, appy, cholecystitis, CVA, Diverticulitis, Homicidal, Suicidal, threat to staff... and all critical care pts) @ -Low likelihood (Tye Calero) Past Medical History Past Medical History: Asthma, GERD/Reflux, Hypertension, Osteoarthritis (OA) Additional Past Medical History / Comment(s): Recent back and abd pain, ? diverticulitis. History of Any Multi-Drug Resistant Organisms: None Reported Past Surgical History: Orthopedic Surgery Additional Past Surgical History / Comment(s): Right wrist surgery with hardware, COLONOSCOPY, EGD. Past Anesthesia/Blood Transfusion Reactions: No Reported Reaction Past Psychological History: No Psychological Hx Reported Smoking Status: Former smoker Past Alcohol Use History: Rare Past Drug Use History: None Reported - Past Family History Mother Family Medical History: Cancer Additional Family Medical History / Comment(s): Lung cancer. Father Family Medical History: Cancer Additional Family Medical History / Comment(s): Lung cancer. <Stephanie Gupta - Last Filed: 06/17/24 19:26> Course Vital Signs 06/17/24 06/18/24 18:57 00:07 Temperature 98.1 F 98.1 F Pulse Rate 57 L Respiratory 20 Rate Blood Pressure 121/71 O2 Sat by Pulse 96 Oximetry Disposition <Stephanie Gupta - Last Filed: 06/17/24 19:26> Is patient prescribed a controlled substance at d/c from ED?: No Time of Disposition: 23:18 <Tye Calero - Last Filed: 06/18/24 03:53> Clinical Impression: Ricardo's palsy Disposition: HOME SELF-CARE Condition: Good Instructions (If sedation given, give patient instructions): Ricardo Palsy (ED) Additional Instructions: Follow-up with your PCP and meter readers supervisor. Report back to ER with any new or worsening symptoms. Use artificial tears while awake. Tape your eye shut at night. Use ophthalmic ointment at night. Take medication as prescribed. Prescriptions: Artificial Tears-Hypromellose [Artificial Tear Drops] 1 drops RIGHT EYE TID #1 dropper predniSONE [Deltasone] 60 mg PO DAILY 6 Days #18 tab Erythromycin Ophth Oint [Romycin Ophth Oint] 1 applic RIGHT EYE HS #3.5 gm Referrals: Jeff Veras MD [Primary Care Provider] - 1-2 days Jason Eubanks MD [STAFF PHYSICIAN] - 1-2 days
[2024-06-17 19:41] LABS: INR 1.1 (<1.2); Partial Thromboplastin Time 27.6 sec (22.0-30.0); Prothrombin Time 11.8 sec (10.0-12.5)
[2024-06-17 19:47] LABS: ALT 30 U/L (4-49); African American GFR (CKD) >90 (>60 ml/min/1.73 sqM); Albumin 4.7 g/dL (3.5-5.0); Anion Gap 9 mmol/L; Blood Urea Nitrogen 26 mg/dL (9-20); Calcium 9.8 mg/dL (8.4-10.2); Carbon Dioxide 23 mmol/L (22-30); Chloride 101 mmol/L (98-107); Glucose 121 mg/dL (74-99); Non-African American GFR(CKD) >90 (>60 ml/min/1.73 sqM); Sodium 133 mmol/L (137-145); Total Bilirubin 0.9 mg/dL (0.2-1.3)
[2024-06-17 19:53] LABS: AST 39 U/L (17-59); Alkaline Phosphatase 77 U/L (38-126); Magnesium 1.9 mg/dL (1.6-2.3); Potassium 4.2 mmol/L (3.5-5.1)
--- NOTE | 2024-06-17 21:07 | CT ---
EXAMINATION TYPE: CT brain wo con CT DLP: 1201.8 mGycm, Automated exposure control for dose reduction was used. DATE OF EXAM: 06/17/2024 8:55 PM COMPARISON: 07/13/2017. CLINICAL INDICATION:Male, 64 years old with history of facial droop, facial droop TECHNIQUE: Brain: Axial CT images of the brain were obtained with coronal and sagittal reformats created and rev iewed. Contrast used: None. Oral contrast used: None. FINDINGS: Extra-axial spaces: No abnormal extra-axial fluid collections. Basilar cisterns are patent. Ventricular system: Ventricles appear dilated in proportion to the degree of cerebral atrophy. Cerebral parenchyma: No increased attenuation to suggest acute intraparenchymal hemorrhage. The gra y-white matter interface appears maintained. Mild generalized brain atrophy. Scattered hypoattenuat ing areas are seen within the cerebral white matter, nonspecific but most often seen with chronic homer rovascular ischemic changes; mild/moderate in degree. Stable appearing small focal hypodensity close to midline just cranial to the lateral ventricles, could relate to old infarct or prominent CSF spac e. Cerebellum: No acute abnormality. Mass effect: No evidence of mass effect or midline shift. Intracranial vasculature: Unremarkable Soft tissues: No acute or concerning abnormality. Visualized orbits: Orbital contents appear grossly intact. Calvarium/osseous structures: No evidence of calvarial fracture. Paranasal sinuses and mastoid air cells: Clear. MRI is more sensitive for detecting acute processes such as infarct, and may be considered if clinica lly warranted. IMPRESSION: 1. No CT evidence of an acute intracranial abnormality. 2. Atrophy and chronic microvascular ischemic white matter changes.
--- NOTE | 2024-06-17 22:44 | CT ---
EXAMINATION TYPE: CT angio head neck DATE OF EXAM: 06/17/2024 9:10 PM COMPARISON: CT head same day. CLINICAL INDICATION:Male, 64 years old with history of Neuro deficit, acute, stroke suspected; PHH, f acial droop TECHNIQUE: Axially acquired helical CT angiogram of the head and neck was obtained with contrast. Axi al images are supplemented with 3D reconstructions which [facility] NASCET criteria used. Contrast used: 65cc mL of Isovue 370 IV Oral contrast used: None. CT DLP: 604.6 mGycm, Automated exposure control for dose reduction was used. FINDINGS: CTA Neck: A 3 vessel aortic arch is shown. Mild calcification along the arch without evidence of aneurysm or d issection. Bilateral subclavian arteries are patent. No significant stenosis of the vertebral artery origins. Ve ssels appear essentially codominant. There is some limitation by streak artifacts however no dissecti on or significant stenosis is suspected throughout the cervical vertebral arteries. The bilateral common carotid arteries are patent. Carotid bifurcations and proximal ICAs show perhaps mild intimal thickening but no hemodynamically significant stenosis. ICAs are thereafter patent to t he skull base. Other: Visualized neck soft tissues show no concerning abnormality. Cervical spine shows mild to mode rate degenerative disc disease mostly from C4 through C7, with mild reversal of the normal cervical l ordosis likely on a degenerative basis. Mild spinal canal stenosis and [id number] bilateral shante ral foraminal stenoses appear present at C4-C5, C5-C6, C6-C7. Canal and contents not well assessed by CT however no large disc protrusion or other acute abnormality is seen. If there is persistent herbert rn MRI could be obtained for further evaluation. Airway is patent. Thyroid is unremarkable. Included upper chest shows no acute lung infiltrate or pne umothorax. Partially seen soft tissue density in the anterior mediastinum measures 1.4 x 1.2 cm, inde terminate etiology but could reflect prominent lymph node. CTA Head: The bilateral intracranial vertebral arteries are patent. Unremarkable major branches in the posterio r fossa. Basilar artery is patent and of normal caliber. Unremarkable basilar bifurcation. There is n o evidence of aneurysm. The visualized proximal naturalization examiner are patent. Sizable posterior communicating chrissy tarsha are not seen. The intracranial ICAs appear patent and unremarkable. Carotid termini are unremarkable, there are pat ent bilateral ACAs and MCAs. Anterior communicating artery is not discretely identified. No intracranial large vessel occlusion, hemodynamically significant stenosis, aneurysm, dissection, o r arteriovenous malformation is shown. The dural venous sinuses appear grossly patent without evidence of thrombosis. Other: Please refer to same-day CT head report.. IMPRESSION: CTA neck: Patent CTA neck. No evidence of dissection or significant stenosis. CTA head: Patent CTA head. No intracranial large vessel occlusion, significant stenosis, or sizable aneurysm de tected in the limits of CTA.
[2024-06-18] MEDS: predniSONE 20 MG TAB PO STA (00:03)
== END 2024-06-18 00:09 | disposition home or self-care (01) ==
LOC: EC 18:21
CPT/HCPCS: 36415; 70450; 70496; 70498; 80053; 83735; 84484; 85025; 85610; 85730; 93005; 99284